=== PATIENT | female | born 1990 | race African-American/Black ===

== ENCOUNTER 2024-06-10 13:23 | Emergency (ER) | payer MEDICAID, SELFPAY ==
--- NOTE | ~2024-06-10 | XR_ITS ---
EXAMINATION: XR chest 1V portable DATE: 06/10/2024 15:52 INDICATION: Chest pain TECHNIQUE: frontal view of the chest was obtained. COMPARISON: None FINDINGS: The lungs are clear with no focal airspace opacities, pulmonary edema, pleural effusion or pneumothor ax. The cardiomediastinal silhouette is normal. Right internal jugular central venous port catheter w ith distal tip at the midsuperior vena cava. Cholecystectomy clips in right upper quadrant. Left shou lder arthroplasty. IMPRESSION: 1. No acute cardiopulmonary disease. Reviewed, dictated and finalized at location A.
[2024-06-10 13:35] VITALS: BP 104/60; PULSE 104; RESP 20; TEMP 36.4; O2SAT 100
[2024-06-10 14:16] VITALS: BP 130/75; PULSE 106; RESP 16; O2SAT 97
[2024-06-10 14:41] LABS: Basophils Percent Auto 0.3 % (0.2-1.2); Eosinophils Absolute Auto 0.1 K/mm3 (0-0.3); Hematocrit 22.4 % (37.0-47.0); Hemoglobin 7.8 g/dL (12.0-15.0); Immature Granulocyte Absolute 0.04 K/mm3 (0.00-0.031); Immature Granulocyte Percent A 0.5 % (0-0.5); Immature Reticulocyte Fraction 41.1 % (3.0-15.9); Lymphocytes Absolute Auto 2.23 K/mm3 (0.9-3.2); Lymphocytes Percent Auto 27.9 % (18.3-44.2); Mean Corpuscular HGB Conc 34.8 g/dl (32-36); Mean Corpuscular Hemoglobin 24.3 pg (26-34); Mean Corpuscular Volume 69.8 fl (80-100); Mean Platelet Volume 10.3 fl (7.4-10.4); Monocytes Absolute Auto 0.3 K/mm3 (0.1-0.6); Monocytes Percent Auto 3.3 % (2.6-8.5); Neutrophils Absolute Auto 5.4 K/mm3 (1.3-6.7); Nucleated Red Blood Cells Perc 0.3 % (0.0-0.2); Platelet Count Result 199 k/mm3 (150-375); Red Blood Count 3.21 M/mm3 (4.2-5.4); Red Cell Distribution Width 19.4 % (11.5-14.5); Reticulocyte Hemoglobin Conten 24.5 pg (28.2-36.6); Reticulocyte Percent 6.78 % (0.7-4.3); Reticulocytes Absolute 0.22 10^6/uL (0.02-0.10)
[2024-06-10 14:54] LABS: Alanine Aminotransferase 20 U/L (6-35); Albumin Level 4.3 g/dL (3.5-5.1); Alkaline Phosphatase 94 U/L (38-126); Anion Gap 11 mmol/L (4-12); Aspartate Amino Transferase 39 U/L (14-36); Blood Urea Nitrogen 5 mg/dL (7-17); Calcium 9.3 mg/dL (8.4-10.2); Carbon Dioxide 20 mmol/L (22-30); Chloride 107 mmol/L (98-107); Estimated CRCL calculation 122 ml/min; Estimated Glomerular Filt Rate > 60; Glucose 176 mg/dL (65-110); Potassium 3.7 mmol/L (3.4-5.0); Sodium 138 mmol/L (137-145)
[2024-06-10 15:10] LABS: Anisocytosis 2+; Microcytosis 1+ (NORMAL); Platelet Estimate Adequate (Adequate); Schistocytes None Seen; Target Cells 1+
[2024-06-10] MEDS: ONDANSETRON HCL ODT 4 MG TABLET PO (15:51)
[2024-06-10] MEDS: HYDROmorphone HCL INJ (*CRX) 1 MG/ML SYR IM (15:52)
[2024-06-10 15:53] VITALS: BP 124/68; PULSE 94; RESP 15; O2SAT 100
--- NOTE | 2024-06-10 16:37 | ED.GENADULT ---
HPI - General Adult General Chief complaint: Unspecified Stated complaint: Sickle Cell pain Time Seen by Provider: 06/10/24 15:37 History of Present Illness HPI narrative: Patient is a 33-year-old female with a past medical history of sickle cell anemia presents to the emergency department due to sickle cell pain crisis. Patient states that she started to have pain all over her body including her chest 2 days ago and ran out of her oxycodone 10 which she takes to control her sickle cell pain. Patient follows up with a stock lifter at [facility] in has an appointment on Tuesday in 2 days. Patient denies any fevers or chills at home, any nausea, vomiting or abdominal pain and denies any urinary symptoms. No additional symptoms or concerns at this time. Related Data Allergies Allergy/AdvReac Type Severity Reaction Status Date / Time Penicillins AdvReac Itching Verified 06/10/24 14:16 Review of Systems Review of Systems: All systems are reviewed and are negative unless stated otherwise in the HPI. Exam Narrative: General: Alert, awake, afebrile, in no acute distress. HEENT: PERRL, no rhinorrhea, no post nasal drip, oropharynx clear. Cardiovascular: Regular rate and rhythm, no murmurs, rubs or gallops, no peripheral edema. Respiratory: Clear to auscultation bilaterally, no tachypnea, no wheezing, no rhonchi, no rubs, no respiratory distress. Abdomen: Soft, nontender, nondistended, no rebound, no guarding, no peritoneal signs. Musculoskeletal: No joint swelling or deformity, normal muscle tone. Skin: No rashes or petechia, no signs of infection. Neurological: Alert and oriented to person, place, and time. Follows all commands. No focal deficits, speech is clear and fluent. Course Vital Signs Vital signs: Vital Signs Temperature 97.6 F 06/10/24 13:35 Pulse Rate 104 H 06/10/24 13:35 Respiratory Rate 20 06/10/24 13:35 Blood Pressure 104/60 06/10/24 13:35 Pulse Oximetry 100 06/10/24 13:35 Oxygen Delivery Room Air 06/10/24 13:35 Temperature 97.6 F 06/10/24 13:35 Pulse Rate 94 06/10/24 15:53 Respiratory Rate 15 06/10/24 15:53 Blood Pressure 124/68 06/10/24 15:53 Pulse Oximetry 100 06/10/24 15:53 Oxygen Delivery Room Air 06/10/24 13:35 Medical Decision Making MDM Narrative Medical decision making narrative: The patient was evaluated by myself in the emergency department. History is obtained from patient who is an independent historian and physical exam was performed. External medical records were reviewed at this time. IV was established and pertinent tests were ordered. Patient was administered 1 mg of IM Dilaudid at this time for pain and 4 mg of Zofran ODT for nausea. Laboratory results obtained revealing hemoglobin of 7.8, hematocrit 22.4, reticulocyte index 2.02, otherwise unremarkable. Imaging studies obtained included CXR which was independently interpreted by me revealing no acute process, which is pending final radiology interpretation. Differential diagnosis considerations include acute chest syndrome, sickle cell pain crisis, dehydration. Comorbidities impacting this visit include history of sickle cell anemia. I have evaluated and discussed social determinants of health with the patient that could potentially impact subsequent diagnosis and treatment plans. On repeat assessment of the patient, reevaluation revealed that the patient is doing well and is in no acute distress. Patient symptoms have improved since she arrived to our emergency department. She rates her pain a 3/10 from a 10/10. This time she was administered a 2nd dose of Dilaudid 0.5 mg IM. Repeat vital signs were all reviewed and noted to be stable. Differential diagnosis and treatment plan were discussed with the patient at bedside. Patient agrees with discussion and after shared medical decision making agrees with discharge. All questions were answered to the patient's satisfacti
[2024-06-10] MEDS: HYDROmorphone HCL INJ (*CRX) 1 MG/ML SYR 0.5 MG IM (16:47)
[2024-06-10 17:09] VITALS: BP 104/71; PULSE 96; RESP 14; TEMP 36.5; O2SAT 100
== END 2024-06-10 17:12 | disposition home or self-care (01) ==
PROVIDERS: Emergency Provider Emergency Medicine
DX: D57.00 Hb-SS disease with crisis, unspecified (principal)
CPT/HCPCS: 36415; 71045; 80053; 85025; 85046; 96372; 99284; A9270; J1170